=== PATIENT | female | born 1980 | race Native Hawaiian/Other Pacific Islander ===

== ENCOUNTER 2022-05-02 07:47 | Emergency (ER) | payer SELFPAY ==
[2022-05-02] VITALS (25 sets, daily range): BP systolic 85–109; BP diastolic 50–68; PULSE 81–103; RESP 22–26; TEMP 37.2–38.2; O2SAT 90–97; BMI 26.5
--- NOTE | 2022-05-02 08:25 | CRLHL7_ITS ---
For Patients: As a result of the Century Cures Act, medical imaging exams and procedure reports are released immediately into your electronic medical record. You may view this report before your referring provider. If you have questions, please contact your health care provider. INDICATION: Cough COMPARISON: None TECHNIQUE: Single-view study FINDINGS: TUBES AND LINES: None. HEART AND MEDIASTINUM: The heart size is normal. The mediastinal contour appears normal for patient age. LUNGS AND PLEURAL SPACES: Patchy airspace opacities laterally at the left base and left perihilar likely inflammatory.The pleural spaces are unremarkable. OSSEOUS STRUCTURES: Age-appropriate appearance. No acute focal finding. IMPRESSION: Patchy airspace opacities adjacent to the left hilum and in the left lower lobe likely inflammatory Dictated by Chandler Sanchez MD @ 05/02/2022 9:36:54 AM (Electronically Signed)
--- NOTE | 2022-05-02 08:28 | ED.GENADULT ---
HPI - General Adult General Chief complaint: Fever Stated complaint: Cough Time Seen by Provider: 05/02/22 08:00 Source: patient Limitations: no limitations History of Present Illness HPI narrative: 42-year-old female coming in today complaining of not feeling well for 8 days. Patient complains of headache, body aches, fever, cough and sore throat. She states that her symptoms have been getting worse over the last several days. Patient states that she is vaccinated against COVID-19 but not influenza. Patient denies any history of asthma, takes no daily medications, denies tobacco use. Related Data Allergies Allergy/AdvReac Type Severity Reaction Status Date / Time No Known Drug Allergies Allergy Verified 05/02/22 07:56 Review of Systems Status of ROS: Reports: 10 or more systems reviewed and unremarkable except as noted in History and below PFSH [facility], LAT[facility] Social History Smoking Status: Never smoker Do you use any of these nicotine containing products: None Second hand tobacco smoke exposure: No How often do you have a drink containing alcohol: never How often do you have six or more drinks on one occasion: Never AUDIT-C Alcohol total score: 0 Non-prescribed substance use: denies use service: No Exam Narrative: Exam Narrative: Well-nourished well-developed patient, tearful. Alert and oriented. Answers questions appropriately. She is slightly tachypneic. Oxygen saturation sits between 90 and 93% on room air. HEENT: Normocephalic atraumatic. Pupils are equally round reactive to light. Extraocular muscles are intact. Conjunctivae are moist without any icterus noted. Moist mucous membranes. Posterior pharynx is normal. Neck is soft without any lymphadenopathy or thyromegaly. No masses are appreciated. Cardiovascular: Heart is regular rate and rhythm S1 and S2 are present without any murmurs. Lungs: Patient has bilateral wheezing appreciated. Abdomen: Soft and nontender nondistended with normal bowel sounds. Skin: Well perfused without any obvious rashes. Const: Vital Signs, click to edit/add: Vital Signs - 24 hr 05/02/22 07:58 05/02/22 08:20 05/02/22 08:26 Temperature 100.7 F H 100.7 F H Pulse Rate Pulse Rate [Apical ] 97 100 103 H Respiratory Rate 22 26 H 26 H Blood Pressure Blood Pressure [Le ft Upper Arm] 103/66 109/68 Pulse Oximetry 92 92 97 Oxygen Delivery Me thod Room Air Room Air Room Air 05/02/22 08:30 05/02/22 08:54 05/02/22 09:00 Temperature Pulse Rate 98 95 Pulse Rate [Apical ] Respiratory Rate Blood Pressure Blood Pressure [Le ft Upper Arm] Pulse Oximetry 92 91 91 Oxygen Delivery Me thod 05/02/22 09:15 05/02/22 09:30 05/02/22 09:45 Temperature Pulse Rate 97 90 88 Pulse Rate [Apical ] Respiratory Rate Blood Pressure Blood Pressure [Le ft Upper Arm] Pulse Oximetry 97 91 91 Oxygen Delivery Me thod 05/02/22 10:00 05/02/22 10:07 05/02/22 10:08 Temperature Pulse Rate 88 90 87 Pulse Rate [Apical ] Respiratory Rate Blood Pressure 89/58 L 90/51 L Blood Pressure [Le ft Upper Arm] Pulse Oximetry 91 90 91 Oxygen Delivery Me thod 05/02/22 10:15 05/02/22 10:30 05/02/22 10:31 Temperature Pulse Rate 85 94 86 Pulse Rate [Apical ] Respiratory Rate Blood Pressure 89/51 L Blood Pressure [Le ft Upper Arm] Pulse Oximetry 91 95 91 Oxygen Delivery Me thod 05/02/22 10:38 05/02/22 10:39 Temperature Pulse Rate 83 81 Pulse Rate [Apical ] Respiratory Rate Blood Pressure 87/50 L 85/50 L Blood Pressure [Le ft Upper Arm] Pulse Oximetry 95 96 Oxygen Delivery Me thod Course Course Hospital Course: IV was established and patient received a L of normal saline, Tylenol and a DuoNeb. Re-examination after treatment revealed that her wheezing had resolved although she still had some rales bilaterally. Her pulse had come down 85. Her blood pressure remained stable at 1 0 9/68. In general she stated that she was feeling better. Her lab work shows mild anemia and she is influenza A positive. Patient was given another L of normal saline. Systolic blood pressure remained around 90. She did have a few readings that were in the mid to upper 80s, however they did not stay that low for very long. Her oxygen saturation ranged anywhere from 90-100%, however she stayed around 93-94% for the majority of the time. She also received a dose of IV methylprednisolone, oral Tamiflu and ibuprofen. Patient stating that she was feeling better and did feel comfortable going home. Vital Signs Vital signs: Initial Vital Signs Temperature 100.7 F H 05/02/22 07:58 Temperature Source Temporal Artery Scan 05/02/22 07:58 Pulse Rate 97 05/02/22 07:58 Pulse Rhythm 05/02/22 07:58 Respiratory Rate 22 05/02/22 07:58 Blood Pressure 103/66 05/02/22 07:58 Blood Pressure Mean 78 05/02/22 07:58 Blood Pressure Position Supine 05/02/22 07:58 Pulse Oximetry 92 05/02/22 07:58 Oxygen Delivery Method 05/02/22 07:58 Vital Signs Temperature 100.7 F H 05/02/22 07:58 Pulse Rate 97 05/02/22 07:58 Respiratory Rate 22 05/02/22 07:58 Blood Pressure 103/66 05/02/22 07:58 Pulse Oximetry 92 05/02/22 07:58 Oxygen Delivery Method 05/02/22 07:58 Temperature 100.7 F H 05/02/22 08:20 Pulse Rate 81 05/02/22 10:39 Respiratory Rate 26 H 05/02/22 08:26 Blood Pressure 85/50 L 05/02/22 10:39 Pulse Oximetry 96 05/02/22 10:39 Oxygen Delivery Method 05/02/22 08:26 Medical Decision Making MDM Narrative Medical decision making narrative: 42-year-old with influenza, dehydration and bilateral wheezing. Despite the fact that the patient has been sick for a week, I am going to send her home on Tamiflu given the presentation of her symptoms. Are also send her home with prednisone for the next few days as well. She is to take ibuprofen and Tylenol for aches and fevers. We discussed hydration in the importance of that. We discussed having a low threshold to return to the ER. Differential diagnosis does include sepsis, however I do not think that this is the case as her pulse came down to normal with hydration. Was able to check patient's past medical records and her baseline systolic blood pressure ranges anywhere from 90-112. She also has chronic anemia, this is also not new. Medical Records Medical records reviewed: Yes I reviewed the patient's medical records Lab Data Lab results reviewed: Yes I reviewed the patient's lab results Labs: Lab Results 05/02/22 05/02/22 Range/Units 08:00 08:40 WBC 9.80 (4.50-11.00) K/uL RBC 4.55 (4.00-5.20) m/uL Hgb 9.4 L (12.0-16.0) gm/dL Hct 30.5 L (33.0-51.0) % MCV 67 L (80-100) fL MCH 21 L (26-34) pg MCHC 31 L (32-36) gm/dL RDW Coeff of Yong 17.3 H (11.5-15.5) % Plt Count 298 (140-440) K/uL Neut % (Auto) 82.2 H (42.0-72.0) % Lymph % (Auto) 9.7 L (20-44) % [place] % (Auto) 6.7 (0.0-11.0) % Eos % (Auto) 0.9 (0.0-7.0) % Baso % (Auto) 0.2 (0.0-3.0) % Neut # (Auto) 8.10 H (1.7-7.0) K/uL Lymph # (Auto) 1.00 (0.90-2.90) K/uL [place] # (Auto) 0.70 (0.00-0.90) K/UL Eos # (Auto) 0.09 (0.00-0.50) K/uL Baso # (Auto) 0.02 (0.00-0.30) K/uL SARS-CoV-2 (PCR) Negative SARS-CoV-2 (Negative) Influenza Type A (PCR) POSITIVE PCR FLU A A (Negative) Influenza Type B (PCR) Negative PCR FLU B (Negative) RSV (PCR) Negative PCR RSV (Negative) Imaging Data Chest x-ray: Attestation: I have reviewed the pertinent imaging results. Radiologist's impression: Single-view study FINDINGS: TUBES AND LINES: None. HEART AND MEDIASTINUM: The heart size is normal. The mediastinal contour appears normal for patient age. LUNGS AND PLEURAL SPACES: Patchy airspace opacities laterally at the left base and left perihilar likely inflammatory.The pleural spaces are unremarkable. OSSEOUS STRUCTURES: Age-appropriate appearance. No acute focal finding. IMPRESSION: Patchy airspace opacities adjacent to the left hilum and in the left lower lobe likely inflammatory Discharge Plan Discharge Clinical Impression: Influenza, Dehydration Patient Disposition: Home, Self-Care Condition: Improved Additional Instructions: Drink lots of fluids throughout the day. Okay to take ibuprofen or Tylenol for achiness or fever. Return to the ER if you feel like things are getting worse instead of better. Follow Up/Referrals: Provider,Not a Local [Primary Care Provider] - Stand Alone Forms: [employer] Info Instructions
[2022-05-02] MEDS: 0.9 % SODIUM CHLORIDE 1000 ml 1,000 ML IV ×2 (08:40→10:10)
[2022-05-02 08:46] LABS: PCR FLU A POSITIVE PCR FLU A (Negative); PCR FLU B Negative PCR FLU B (Negative); PCR RSV Negative PCR RSV (Negative)
[2022-05-02 08:52] LABS: Basophils Absolute Auto 0.02 K/uL (0.00-0.30); Basophils Percent Auto 0.2 % (0.0-3.0); Eosinophils Absolute Auto 0.09 K/uL (0.00-0.50); Eosinophils Percent Auto 0.9 % (0.0-7.0); Hematocrit 30.5 % (33.0-51.0); Hemoglobin* 9.4 gm/dL (12.0-16.0); Immature Granulocytes Abs Auto 0.03 K/uL (0.00-0.30); Immature Granulocytes Pct Auto 0.3 %; Lymphocytes Percent Auto 9.7 % (20-44); Mean Corpuscular HGB Conc 31 gm/dL (32-36); Mean Corpuscular Hemoglobin 21 pg (26-34); Mean Corpuscular Volume 67 fL (80-100); Monocytes Percent Auto 6.7 % (0.0-11.0); Neutrophils Percent Auto 82.2 % (42.0-72.0); Platelet Count* 298 K/uL (140-440); RDW Coefficient of Variation % 17.3 % (11.5-15.5); Red Blood Count 4.55 m/uL (4.00-5.20)
[2022-05-02 08:54] LABS: SARS PCR* Negative SARS-CoV-2 (Negative)
[2022-05-02] MEDS: IPRAT-ALBUT 0.5-2.5 MG/3 ML NEB 1 NEB IH (08:54)
[2022-05-02] MEDS: ACETAMINOPHEN 500 MG TABLET 1000 MG PO (08:54)
[2022-05-02 09:04] LABS: Slide Review Reflex Yes
--- NOTE | 2022-05-02 10:45 | ED.NURSE ---
B/p rechecked, continues to be low. Pt has bolus infusing, about 700ml left. Dr Clark updated, ok to wait until after bolus is completed to reassess b/p
[2022-05-02] MEDS: OSELTAMIVIR PHOSPHATE 75 MG CAPSULE PO (11:20)
[2022-05-02] MEDS: IBUPROFEN 200 MG TABLET 600 MG PO (11:21)
[2022-05-02] MEDS: METHYLPREDNISOLONE SOD SUCC 40 MG/ML IVP (11:21)
[2022-05-02 11:58] LABS: Slide Review Acceptable Review (Acceptable)
== END 2022-05-02 11:55 | disposition home or self-care (01) ==
PROVIDERS: Emergency Provider Family Medicine
DX: J09.X2 Influenza due to identified novel influenza A virus with other respiratory manifestations (principal); E86.0 Dehydration
CPT/HCPCS: 36415; 71045; 85025; 87502; 87634; 87635; 94640; 94761; 96374; 99285; A9270; J2920; J7030